=== PATIENT | male | born 1940 | race Caucasian/White ===

== ENCOUNTER 2025-06-21 02:19 | Observation (INO) | payer MEDICARE, OTHER, SELFPAY ==
[2025-06-20 19:15] VITALS: BP 156/89
[2025-06-20 19:25] VITALS: BP 159/117
[2025-06-20 19:38] LABS: Hematocrit 44.0 % (39.0-52.0); Hemoglobin 14.7 g/dL (13.0-18.0); Mean Corp Hgb Conc. 33.4 g/dL (33.0-37.0); Mean Corpuscular Volume 92.8 fL (80.0-94.0); Nucleated Red Blood Cells % 0 % (-); Platelet Count 181 10^3/uL (130-400); Red Cell Dist. Width 14.1 % (11.5-14.5)
[2025-06-20 20:00] LABS: AST (SGOT) 27 U/L (17-59); Albumin 4.1 g/dl (3.5-5.0); Blood Urea Nitrogen 21 mg/dl (9-20); Carbon Dioxide 22 mmol/L (22-30); Chloride 107 mmol/L (98-107); Glucose 117 mg/dl (70-99); Total Protein 7.1 g/dl (6.3-8.2); eGFR 59.63
[2025-06-20 20:10] LABS: ALT (SGPT) 23 U/L (0-50); Alkaline Phosphatase 58 U/L (38-126); Calcium 9.2 mg/dl (8.4-10.2); Potassium 4.7 mmol/L (3.5-5.1); Sodium 137 mmol/L (135-145)
[2025-06-20 20:13] LABS: Troponin I < 0.012 ng/ml
[2025-06-20 20:57] VITALS: BP 153/96
[2025-06-20 21:00] VITALS: BP 155/91
[2025-06-20 21:09] VITALS: BMI 32.5
--- NOTE | 2025-06-20 21:47 | ED.GENMED ---
History of Present Illness
General
Chief Complaint: Dizziness
Source: patient
Exam Limitations: none
Time Seen by Provider: 06/20/25 21:16
Nursing documentation reviewed up to this point in time: agreed with
History of Present Illness
History of Present Illness:
84-year-old male from [facility] 5:45 PM while walking to dinner noticed he was walking to the side, grabbed onto a rail, he has had similar episodes in the past told he had a TIA, he takes Eliquis for his A-fib his pacemaker he has no headache
no nausea no vomit no slurred speech no arm or leg weakness no visual complaints when I evaluated him he was reading watching TV in no acute distress
If applicable-neuro sx onset
Onset of symptoms known: Yes
Date of onset of symptoms: 06/20/25
Time of onset of symptoms: 17:45
Time pt last seen normal is known: Yes
Date last time pt seen normal: 06/20/25
Past History
Past History
ED Past Medical History: Arrthythmia, CAD, HTN, Hypercholesterolemia and Other (BPH)
ED Past Surgical History: Appendectomy, Cardiac and Orthopedic
Social History
Tobacco: Non-smoker
Alcohol: None
Drug: None
Living: with family
Employment: Retired
Review of Systems
Review of Systems
All Other Systems: Not applicable
Constitutional: Reports no symptoms
EENT: Reports no symptoms
Respiratory: Reports no symptoms
Cardiac: Reports no symptoms
ABD/GI: Reports no symptoms
: Reports no symptoms
Musculoskeletal: Reports no symptoms
Skin: Reports no symptoms
Neurological: Denies dizzy, headache, weakness or numbness
Psychiatric: Reports no symptoms
Phy Exam
Physical Exam
Physical Exam:
Physical Exam
General: no apparent distress, not acutely ill
Neck: No tongue bite midline trachea
Heart: s1/s2 regular rate and rhythm, no murmur. equal radial pulses.
Lungs: no acute respiratory distress. clear bilaterally
Abdomen: Nontender
Neuro: alert and oriented. no focal neurological deficits normal [id number] muscle strength 5 out of 5 upper and lower
Skin: no rash
Psychiatric: well kept. interactive and cooperative
Extremities: no edema.
Course
Orders/Labs/Results
Orders:
Orders
06/20/25 19:18
Electrocardiogram (*1) Urgent
Reason for Study: Syncope
EKG- Treatment ONCE
06/20/25 19:24
EKG [Electrocardiogram (*1)] Urgent
Reason for Study: Abdominal Pain
06/20/25 19:31
Complete Blood Count/With Diff Urgent
Comprehensive Metabolic Panel Urgent
Troponin I Urgent
06/20/25 21:02
Cardiac Monitoring- Treatment ONCE
06/20/25 21:43
CT Head W/o Iv Contrast Urgent
Comment:
Reason For Exam: ataixa
Abnormal Lab Results
06/20/25
19:31
MPV 11.1 H fL
(7.4-10.4)
Absolute Monos (auto) 0.8 H 10^3/uL
(0.1-0.6)
Lymphocytes % 19.1 L %
(20.5-51.1)
BUN 21 H mg/dl
(9-20)
Glucose 117 H mg/dl
(70-99)
06/20/25 19:31
06/20/25 19:31
Vital Signs
Initial and Last Documented VS:
Initial Vital Signs
Temp Pulse Resp BP Pulse Ox
97.9 F 80 18 156/89 92
06/20/25 19:15 06/20/25 19:15 06/20/25 19:15 06/20/25 19:15 06/20/25 19:15
Last Documented Vital Signs
Temp Pulse Resp BP Pulse Ox
97.9 F 80 18 155/91 97
06/20/25 19:15 06/20/25 21:15 06/20/25 21:17 06/20/25 21:00 06/20/25 21:50
MDM/Problems Addressed
Differential Diagnosis Includes:
Vertigo, ICH, TIA, electrolyte abnormality anemia
MDM/Problems Addressed:
Ataxia
Chronic conditions affecting care: Arrhythmia and Neurological disorder
Acute Exacerbation and/or Progression of Chronic Illness: Arrhythmia and Neurological disorder
*Radiology
Radiology exam reviewed: radiology read reviewed
*Pulse Oximetry
SaO2: 97
Oxygen Mode of Delivery: Room air
Patient hypoxic: no
*EKG
Interpreted by ED Provider?: Yes
Interpretation: normal
Comparison EKG: no comparison EKG present
Heart Rate: 78
Rate: normal
Rhythm: ventricular paced
Ischemia: no ischemia
*Ground Transportation Operator Interpretation
Rate: normal
Interpretation: normal
Heart Rate: 78
Rhythm: ventricular paced
*Critical Care Note
Total Time (30-74mins, 75-104mins- exclusive of procedures): Not Applicable
Data Reviewed
Source: patient
Update Note
Update Note:
11:[address] report noted. 2 prior CVAs, reviewed with patient recommend ambulating so he is doing, he states he feels uncomfortable going home, concerned that he could have had another stroke not unreasonable again he is anticoagulated not a lytic
candidate
ED Attending Note
-
Portions of this chart may have been created with voice recognition software.� Occasional wrong word or��sound alike� substitutions may have occurred due to the inherent limitations of voice recognition software.
Discharge Plan
Departure
Patient Disposition: Admit
Date of Disposition: 06/20/25
Time of Disposition: 23:31
Admit to: Telemetry
Presentation/result/management discussed w/ accepting MD/DO: Hospitalist
Patient with high blood pressure during this ER visit?: Yes
Condition: Good
Discharge Problem:
Brain TIA
Prescriptions:
No Action
niacin [Niaspan Extended-Release] 500 MG tablet extended release 24 hr
500 mg PO HS
aspirin 81 MG tablet,delayed release (DR/EC)
81 mg PO HS
simvastatin 40 MG tablet
40 mg PO HS
ramipril 2.5 MG capsule
2.5 mg PO HS
docosahexaenoic acid-epa 1 CAP capsule
400 mg PO BID
vitamin G34-cguhrdlhl factor [Martinic] 1 EACH capsule
1 cap PO DAILY
alfuzosin 10 MG tablet extended release 24 hr
10 mg PO DAILY
glucosamine nunez 2KCl-chondroit [Glucosamine Sulf-Chondroitin] 1 EACH capsule
500 mg PO BID
metronidazole 500 MG tablet
500 mg PO TID Qty: 30 0RF
levofloxacin 500 MG tablet
500 mg PO DAILY 10 Days 0RF
Referrals:
Ruma Buck DO [Family Provider, Internal Medicine]
Interventions
Interventions:
*Risk Screen - Suicide Last Done: 06/20/25 19:18
*General Assessment Last Done: 06/20/25 21:09
*Neglect/Abuse Screening Last Done: 06/20/25 19:18
*ED- Fall Risk Assessment Last Done: 06/20/25 21:09
*ED COVID-19 Vaccine History Last Done: 06/20/25 19:17
*ED Influenza Vaccine History Last Done: 06/20/25 19:17
ED- Neurological Assessment Last Done: 06/20/25 21:09
ED- Cardiac Assessment Last Done: 06/20/25 21:09
ED Swallowing Screen Last Done: 06/20/25 21:09
Discharge Date and Time
Print Language: LIBYAN
[2025-06-20 22:41] VITALS: BP 156/90
[2025-06-20 23:00] VITALS: BP 149/85
[2025-06-21] VITALS (16 sets, daily range): BP systolic 113–175; BP diastolic 72–105; PULSE 80–117; BMI 32.5; BMI 32.6
--- NOTE | 2025-06-21 01:13 | HPS.HSE ---
Family Physician
-
Family Physician: Ruma Buck
Chief Complaint
-
Dizziness
History of Present Illness
This is a 84-year-old who has a past medical history significant for atrial fibrillation on anticoagulation status post pacemaker placement, CAD, hypertension, hyperlipidemia, BPH presenting to the emergency department with episode of dizziness
requiring grabbing onto a rail.
Patient had a prior episode of dizziness that resulted in the finding of a TIA. He reported that he felt dizzy and could not walk so he grabbed onto the rail and now symptoms resolved. He had no facial asymmetry, slurred speech, focal weaknesses
in the upper or lower extremities, and no double vision blurry vision or other visual changes, denies any headache. Denies any nausea. Denies any vomiting. Denies any palpitations.
He told me that he is Ambulatory Difficulties in the past and Has Osteoarthritis of the Knee and He [place] That Is Right Knee Could Have Buckled but He Was Not Sure. He denied any palpitations, diaphoresis chest pain lightheadedness. He denies
having any vertigo and nausea or vomiting. He reported that he was seen at [facility] twice for symptoms in the past that were similar and was diagnosed with TIA with last episode in January. He did have an MRI that was negative at that time. There
was no changes in his medications.
In the emergency department patient was afebrile, blood pressure of 153/102 with a pulse rate of 80 and he was satting 98% on room air. ECG shows a AV dual paced rhythm at a rate of [address]-T wave changes. CT of the head showed no acute
interval changes. Troponin was negative. CBC was all within normal limits. Electrolytes BUN/creatinine were all within the normal range.
Medical History
Past Medical History
Past Medical History: Reports Arrhythmia (Atrial fibrillation), CAD, HTN, Hypercholesterolemia and Other (BPH)
Past Surgical History: Reports Appendectomy, Cardiac and Orthopedic
Social History
Tobacco: Non-smoker
Alcohol: None
Living: With Family
Family History
Family History: Not pertinent
Allergies / Home Medications
Allergies reflects when Allergies were last updated in [employer].
Home Medications with original date entered in [employer]
Allergy/Medication List:
Allergies
Allergy/AdvReac Type Severity Reaction Status Date / Time
No Known Allergies Allergy Verified 06/20/25 19:17
Home Medications
alfuzosin 10 mg tablet,extended release 24 hr 10 mg PO DAILY 12/21/12
[place] 3 Fish Oil 1,000 mg PO TID 06/21/25
apixaban 5 mg tablet (Eliquis) 5 mg PO BID 06/21/25
ascorbic acid (vitamin C) 100 mg chewable tablet 100 mg PO DAILY 06/21/25
coenzyme Q10 100 mg capsule 100 mg PO DAILY 06/21/25
omeprazole 20 mg capsule,delayed release 20 mg PO DAILY 06/21/25
rosuvastatin 40 mg tablet 40 mg PO DAILY 06/21/25
valsartan 80 mg tablet 80 mg PO DAILY 06/21/25
Review of Systems
-
Constitutional: Reports No Symptoms
EENT: Reports No Symptoms
Respiratory: Reports No Symptoms
Cardiac: Reports No Symptoms
Abdomen/GI: Reports No Symptoms
: Reports No Symptoms
Musculoskeletal: Reports No Symptoms
Skin: Reports No Symptoms
Neurological: Reports No Symptoms
Endocrine: Reports No Symptoms
Hematologic/Lymphatic: Reports No Symptoms
Psych: Reports No Symptoms
Physical Exam
Vital Signs
Vital Signs
Temp Pulse Resp BP Pulse Ox
97.9 F 82 19 153/102 98
06/20/25 19:15 06/21/25 01:00 06/21/25 01:00 06/21/25 01:00 06/21/25 01:00
Physical Exam
General: Well Developed, Well Nourished and No Apparent Distress
HEENT: NormoCephalic, Moist mucous membranes and Atraumatic
Respiratory: Clear
Cardiac: S1/S2 and Regular Rhythm; No Murmur or Rub
GI: Soft, Non Tender, Non Distended and Normal Bowel Sounds; No Organomegaly
Rectal: Deferred by Provider
Musculoskeletal: No Clubbing, No Cyanosis and No Edema
Skin: No Rash
Neuro: Nonfocal/grossly intact
Laboratory Results
-
06/20/25 19:
06/20/25:
Laboratory Results
Total Bilirubin 1.0 mg/dl (0.2-1.3) 06/20/25
AST 27 U/L (17-59) 06/20/25
ALT 23 U/L (0-50) 06/20/25
Alkaline Phosphatase 58 U/L (38-126) 06/20/25:
Troponin I < 0.012 ng/ml 06/20/25:
Data Reviewed
-
CT Scan: Report Reviewed by me
Medical Tests (Nuc Med, Echo, EKG etc): Image Personally Visualized and interpreted
Lab Data: Labs Reviewed by me
Impression/Plan
-
IMPRESSION:
84-year-old with a history of atrial fibrillation on anticoagulation, CAD, hypertension, hyperlipidemia, prior TIA presents to Emergency Department with episode of dizziness which appears to be now resolved. She has no other focal neurological
deficit. NIHSS equals 0 currently. Patient is compliant with Eliquis and lives at [facility]. I suspect episode of ambulatory dysfunction versus TIA.
PLAN:
Dizziness, possible TIA -denies any vertigo. Denies feeling lightheaded. Denies palpitations. Possibly ambulatory dysfunction. He was able to ambulate without symptoms in the ED however.
- Admit to telemetry observation
- low chol diet
- cardiovascular panel
- Neurochecks Q6
- Request records from [facility] from January to March including imaging such as MRI
- Possible check MRI in a.m pending records of pacemaker from [facility], will hold off on ordering at this time
- Carotid ultrasound bilateral
- Continue anticoagulation for now
- Orthostatic vital sign
- PT consultation
- Neurology consultation
Hypertension
- Continue antihypertensives with valsartan 80 mg daily and continue metoprolol
- Continue statin Crestor 40 mg daily
Atrial fibrillation on anticoagulation
- Continue Eliquis
- Continue metoprolol 25 mg extended release daily
BPH
� Continue prazosin and finasteride
DVT prophylaxis�on Eliquis
CODE STATUS�DNR
[2025-06-21] MEDS: ELIQUIS 5 MG PO ×3 (01:38→19:59)
[2025-06-21] MEDS: TYLENOL 650 MG PO (03:57)
[2025-06-21] MEDS: FLOMAX 0.4 MG PO (08:01)
[2025-06-21] MEDS: DIOVAN 80 MG PO (08:01)
[2025-06-21] MEDS: PROTONIX 40 MG PO (08:01)
[2025-06-21] MEDS: PROSCAR 5 MG PO (08:01)
[2025-06-21] MEDS: TOPROL XL 25 MG PO (08:01)
[2025-06-21] MEDS: VITAMIN C 125 MG PO (08:53)
[2025-06-21] MEDS: CRESTOR 40 MG PO (08:54)
--- NOTE | 2025-06-21 10:05 | CON.NEURO4 ---
Addendum entered and electronically signed by Aris John MD 06/21/25 18:38:
Studies reviewed.
I have personally examined the patient. I reviewed and agree with the FIBER PICKER's Note.
My addenda:
Awake, alert, interactive. No acute distress.
Speech intact.
Follows 2-step requests w/o difficulty. No tremor.
Extra-ocular movements grossly intact.
Facial movements full and symmetric. Hearing intact to normal conversational volume.
Normal UE movements bilaterally.
Neck: full ROM.
Chest: no dyspnea
Heart: no JVD
Ext: (-) Clubbing, (-) Cyanosis, (-) Edema
IMPRESSIONS/RECOMMENDATIONS:
Abrupt onset of difficulty with gait and general malaise. Patient has prior history of 2 episodes which were suggestive of acute ischemic stroke in 2023 and January 2025
Orthostatic blood pressure evaluations do indicate orthostasis is present
Patient should be maintained on apixaban
Patient should be maintained on rosuvastatin
Provide abdominal binder
Encourage fluids
Patient should sleep at a 30 degree angle to prevent supine hypertension
If unable to obtain MRI of brain in a timely fashion, may be performed as outpatient
D/W patient
All questions answered.
Will continue to follow as needed.
Original Note:
Documented by User: Mae Forrest NP 06/21/25 13:26
Consultation - Neurology 4
-
CONSULTING PHYSICIAN: Aris John MD
REFERRING PHYSICIAN: Hospitalists/CHIDI Comer
DICTATED BY: CHIDI Perez
DATE/TIME OF REQUEST: 06/21/25
DATE/TIME OF CONSULTATION: 06/21/25
Reason for Consultation: Unsteady Gait
History of Present Illness:
This is an 84-year-old left-handed male who has presented to the hospital on 06/20/25 with report of difficulty walking. Patient reports that in Fall 2023 he had an episode of 'not feeling right' and being unbale to speak. He was evaluated at
[facility] at that time and wasn't given a clear diagnosis. Then in January 2025 he had another episode of suddenly not being able to come up with words for 2-3 minutes. His friends report that his speech was garbled and nonsensical. He was
evaluated at [facility] again following that event and had an MRI brain which he reports demonstrated 2 areas of 'TIA.'
Yesterday (06/20/25), he was in his usual state when he was walking to dinner, when suddenly he was veering to the left side and unable to walk straight. CT head was obtained on arrival and is suggestive of chronic left cerebellar and ventral
medulla ischemic infarcts. CTA head/neck is negative for any any LVO or significant stenosis. Today (06/21/25), he reports still feeling unsteady on his feet. He reports having a headache this morning that has now resolved. He denies any dizziness,
vision changes, speech/swallowing difficulty, numbness, and focal weakness. He has not missed any doses of his apixaban.
Past Medical History: Afib (apixaban), HTN, HLD, CAD, BPH
Surgical History: AICD, appendectomy, orthopedic
Family History: Reviewed and noncontributory.
Social History: Denies tobacco, alcohol, and illicit drug use.
Allergies: No known allergies.
Home Medications: See below.
Review of Symptoms:
Patient denies any fever, headache, chest pain, shortness of breath, GI or symptoms.
�Per the HPI.�All systems are reviewed negative except above.
Physical Exam:
The patient is afebrile, abdomen is nondistended, breathing is unlabored, skin is warm and dry, no edema.
NIH Stroke Scale:
I performed the NIH stroke scale on the patient on 06/21/25 at 1015. The patient scored 0 points on the NIH stroke scale assessment, which were assigned as follows: See below.
Neurologic Examination:
The patient is awake, alert and oriented x 3. He is able to follow commands and answer questions appropriately. There is no aphasia or dysarthria. On cranial nerve assessment, pupils are 3 mm bilateral, round and reactive to light and
accommodation. Visual blair are full. Extraocular movements are intact. Facial sensations are intact and bilaterally symmetrical, there is no facial asymmetry. Hearing is intact bilaterally to normal conversation volume. Tongue palate and uvula are
midline. Sternocleidomastoid strengths are full bilaterally. Motor strengths are 5/5 bilateral upper and lower extremities on medical research [place] scale. There is no drift or involuntary movement noted. Deep tendon reflexes are 2+ bilateral
upper and lower extremities and Babinski is absent bilaterally. There was no extinction noted on double simultaneous stimulation. Coordination is intact by finger to nose bilaterally.
Lab Results: See below.
Neuro Imaging:
1. CT Head 06/20/25: No CT evidence for acute intracranial hemorrhage or transcortical infarct. 1.4 cm chronic infarct in the posterior left cerebellar hemisphere. Probable 4 mm chronic infarct in the ventral medulla. Mild to moderate bilateral
frontal and parietal lobe volume loss.
2. CTA head/neck 06/21/25: No acute intracranial abnormality. No significant change compared to the prior CT from 06/20/2025. No large vessel occlusions or dissections appreciated.
Differentials for the patient's presentation include:
1. Abrupt onset gait dysfunction; uncertain etiology, possibly due to positive orthostatic vital signs, cannot entirely exclude an acute ischemic stroke producing symptoms.
2. History of a left cerebellar and possibly medullary ischemic stroke.
Patient has the following risk factors for their symptoms: Hx stroke, HTN, HLD, age, +orthostatic vital signs
IV Tenecteplase/IAT candidacy: Not a candidate due to low NIHSS, no LVO.
Recommendations:
-Continue home apixaban.
-MRI brain noncontrast pending.
-Check orthostatic vital signs BID.
-Abdominal binder daily when OOB for orthostasis. Slow position changes, increase water intake.
-LDL goal <70. LDL is pending. Continue home rosuvastatin 40mg daily.
-Goal normoglycemia, hbA1c is pending.
-NIHSS and neurological checks per unit guidelines.
-Provide patient with a stroke education packet.
-PT/OT evaluations.
Discussed patient care with: Dr. John, the patient
Vital Signs and Labs
-
Vital Signs and Labs:
Vital Signs
Temp Pulse Resp BP Pulse Ox
97.6 F 87 22 154/88 96
06/21/25 07:59 06/21/25 08:01 06/21/25 07:59 06/21/25 08:01 06/21/25 07:59
Lab Results
06/20/25 19:31
06/20/25 19:31
Sodium 137 mmol/L (135-145) 06/20/25 19:31
Potassium 4.7 mmol/L (3.5-5.1) 06/20/25 19:31
BUN 21 mg/dl (9-20) H 06/20/25 19:31
Glucose 117 mg/dl (70-99) H 06/20/25 19:31
Calcium 9.2 mg/dl (8.4-10.2) 06/20/25 19:31
Cholesterol Cancelled 06/21/25 06:10
Medications
-
Active Medications
Generic Name Dose Route Start Last Admin
Trade Name Freq PRN Reason Stop Dose Admin
Acetaminophen 650 mg 06/21/25 03:48 06/21/25 03:57
Acetaminophen 325 Mg Tablet PO 07/19/25 03:47 650 mg
Q4HPRN PRN Administration
mild pain/YOUNG/temp>100.5
Apixaban 5 mg 06/21/25 10:00
Apixaban (Eliquis) 5 Mg Tablet PO 07/19/25 09:59
BID YADIEL
Ascorbic Acid 125 mg 06/21/25 08:00 06/21/25 08:53
Ascorbic Acid 250 Mg Tablet PO 07/19/25 07:59 125 mg
DAILY YADIEL Administration
Finasteride 5 mg 06/21/25 08:00 06/21/25 08:01
Finasteride 5 Mg Tablet PO 07/19/25 07:59 5 mg
DAILY YADIEL Administration
Metoprolol Succinate 25 mg 06/21/25 08:00 06/21/25 08:01
Metoprolol 25 Mg Extended Release Tablet PO 07/19/25 07:59 25 mg
DAILY YADIEL Administration
Pantoprazole Sodium 40 mg 06/21/25 08:00 06/21/25 08:01
Pantoprazole 40 Mg Delayed Release Tablet PO 07/19/25 07:59 40 mg
DAILY YADIEL Administration
Rosuvastatin Calcium 40 mg 06/21/25 08:00 06/21/25 08:54
Rosuvastatin (Crestor) 20 Mg Tablet PO 07/19/25 07:59 40 mg
DAILY YADIEL Administration
Tamsulosin HCl 0.4 mg 06/21/25 08:00 06/21/25 08:01
Tamsulosin 0.4 Mg Capsule PO 07/19/25 07:59 0.4 mg
DAILY YADIEL Administration
Valsartan 80 mg 06/21/25 08:00 06/21/25 08:01
Valsartan 80 Mg Tablet PO 07/19/25 07:59 80 mg
DAILY YADIEL Administration
Home Medications
�Medication �Instructions �Recorded
alfuzosin 10 mg tablet,extended 10 mg PO QPM Urinary Issue 12/21/12
release 24 hr
apixaban 5 mg tablet (Eliquis) 5 mg PO BID Prevent Blood Clot/AFib 06/21/25
ascorbic acid (vitamin C) 100 mg 100 mg PO DAILY Supplement 06/21/25
chewable tablet
coenzyme Q10 100 mg capsule 100 mg PO DAILY Supplement 06/21/25
finasteride 5 mg tablet 5 mg PO QPM Urinary Issue 06/21/25
metoprolol succinate 25 mg 25 mg PO DAILY Heart 06/21/25
tablet,extended release 24 hr Disease/BP/AFib
(Toprol XL)
omega 1-vbf-abx-fish oil 1,000 mg 1 cap PO BID Supplement 06/21/25
(120 mg-180 mg) capsule (Fish Oil)
omeprazole 20 mg capsule,delayed 20 mg PO DAILY Gastrointestinal 06/21/25
release Issue
rosuvastatin 40 mg tablet 40 mg PO DAILY High Cholesterol 06/21/25
valsartan 80 mg tablet 80 mg PO DAILY Blood Pressure 06/21/25
NIH Stroke Score
Subsequent NIH Scale
Date of Subsequent NIH Scale: 06/21/25
Time of Subsequent NIH Scale: 10:15
NIH Stroke Score
Level of Consciousness: 0 - Alert
LOC Questions: 0-Answers both correctly
LOC Commands: 0-Performs both correctly
Best Horizontal Gaze: 0-Normal
Visual [place]: 0=Normal, no visual loss
Facial Palsy: 0=Normal, symmetrical
Motor - Right Arm: 0=No drift 10 seconds
Motor - Left Arm: 0=No drift 10 seconds
Motor - Right Le-No drift 5 seconds
Motor - Left Le-No drift 5 seconds
Limb Ataxia: 0-Absent
Sensation: 0-Normal
Best Language: 0-No aphasia
Dysarthria: 0-Normal
Extinction and Inattention: 0-No abnormality
NIH Total Score:: 0
Modified [place] (mRS) Score
Modified [place] Scale (mRS): Slight disability. Able to look after own affairs.
Score: 2
Alteplase Contraindication
Inclusion and Exclusion criteria reviewed: Yes
IAT Contraindications: NIHSS < 6 and Imaging doesn't show large vessel occlusion as cause of stroke

Documented by User: Aris John MD 06/21/25 18:35
NIH Stroke Score
NIH Stroke Score
NIH Total Score:: 0
Modified [place] (mRS) Score
Score: 2
[2025-06-21 10:35] LABS: HDL Cholesterol 45 mg/dl; Very Low Density Lipoprotein 30 mg/dl (0-30)
--- NOTE | 2025-06-21 10:44 | CM ---
Chart reviewed and KELLEY reviewed and signed at 10:35 am
Lives alone in [facility]
Independent with ADLs and ambulation. Drives
no DME
PCP Dr. Noe Buck
RX plan yes
Pharmacy [facility]
no hx of VN
[facility] of [facility]
DCP is to go home and stepdtr Dania can drive him home
Will continue to follow up for any dcp needs
[2025-06-21 11:04] LABS: Glycohemoglobin (HgbA1c) 6.3 % (4.0-5.9)
[2025-06-21 11:12] LABS: Ferritin 130.0 ng/ml (17.9-464.0)
[2025-06-21 12:51] LABS: Folate 9.1 ng/ml (2.76-20)
--- NOTE | 2025-06-21 14:57 | W.PN.UPDATE ---
Update Note
Progress Note Update
SHANNAN stockings, abdominal binder for orthostatic positive
MRI once clearance is obtained due to pacemaker
Obtain lipid panel
[2025-06-21 15:18] LABS: Vitamin B12 391 pg/ml (239-931)
[2025-06-21] MEDS: LR 1000 IV (15:34)
--- NOTE | 2025-06-21 19:00 | PTCARENOTE ---
Received patient from ED via wheelchair. Patient ambulated from wheelchair to bed x1 assist with RW. AAOx3, no current complaints of pain. Oriented patient to room and placed call truong within reach.
[2025-06-21 20:34] LABS: LDL Cholesterol, Calculated 64 mg/dl
[2025-06-22] VITALS (7 sets, daily range): BP systolic 100–172; BP diastolic 58–103; PULSE 81–85
[2025-06-22] MEDS: CRESTOR 40 MG PO (08:16)
[2025-06-22] MEDS: DIOVAN 80 MG PO ×2 (08:16→23:11)
[2025-06-22] MEDS: PROTONIX 40 MG PO (08:16)
[2025-06-22] MEDS: TOPROL XL 25 MG PO (08:16)
[2025-06-22] MEDS: FLOMAX 0.4 MG PO (08:16)
[2025-06-22] MEDS: ELIQUIS 5 MG PO ×2 (08:16→20:34)
[2025-06-22] MEDS: PROSCAR 5 MG PO (08:16)
[2025-06-22] MEDS: VITAMIN C 125 MG PO (08:26)
[2025-06-22 08:48] LABS: Hematocrit 44.7 % (39.0-52.0); Hemoglobin 14.9 g/dL (13.0-18.0); Mean Corp Hgb Conc. 33.3 g/dL (33.0-37.0); Mean Corpuscular Volume 95.9 fL (80.0-94.0); Platelet Count 192 10^3/uL (130-400); Red Cell Dist. Width 14.0 % (11.5-14.5)
[2025-06-22 09:31] LABS: ALT (SGPT) 22 U/L (0-50); AST (SGOT) 26 U/L (17-59); Albumin 4.1 g/dl (3.5-5.0); Alkaline Phosphatase 55 U/L (38-126); Blood Urea Nitrogen 24 mg/dl (9-20); Calcium 9.8 mg/dl (8.4-10.2); Carbon Dioxide 24 mmol/L (22-30); Chloride 107 mmol/L (98-107); Estimated Creatinine Clearance 49 ml/min; Glucose 114 mg/dl (70-99); Potassium 4.6 mmol/L (3.5-5.1); Sodium 137 mmol/L (135-145); Total Protein 7.0 g/dl (6.3-8.2); eGFR 54.17
--- NOTE | 2025-06-22 12:55 | W.PN.HOSP.TC ---
Today's Communication/Plan
-
hypertensive control
BP titration
Assessment / Plan
Assessment / Plan
Physical Exam
General: Well Developed, Well Nourished and No Apparent Distress
HEENT: NormoCephalic, Moist mucous membranes and Atraumatic
Respiratory: Clear
Cardiac: S1/S2 and Regular Rhythm; No Murmur or Rub
GI: Soft, Non Tender, Non Distended and Normal Bowel Sounds; No Organomegaly
Rectal: Deferred by Provider
Musculoskeletal: No Clubbing, No Cyanosis and No Edema
Skin: No Rash
Neuro: Nonfocal/grossly intact
Dizziness, possible TIA -
-Orthostatic positive - add SHANNAN stockigns, abd binder fluid
-Repeat Orthostatics
-Cont Tele
-MRI Brain, pending PPM clearance
-LDL 64, a1c 6.3
-Neurology recs
-Low Fat Diet
-PT/OT
#Orthostatic Hypotension
-Monitor
Hypertension
- Change valsartan to 80 mg BID
-Add nifedipine 30mg xl
-continue metoprolol
- Continue statin Crestor 40 mg daily
Atrial fibrillation on anticoagulation
- Continue Eliquis
- Continue metoprolol 25 mg extended release daily
BPH
� Continue prazosin and finasteride
DVT prophylaxis�on Eliquis
CODE STATUS�DNR
Anticipated Discharge: 24 - 48 hours
Subjective/Interval History
-
Date of Service: June 22, 2025
No acute events overnight
Objective Data
-
Labs:
Laboratory Results
06/22/25
08:04
WBC 6.6
Hgb 14.9
Hct 44.7
Plt Count 192
Sodium 137
Potassium 4.6
Chloride 107
Carbon Dioxide 24
BUN 24 H
Creatinine 1.3
Glucose 114 H
Calcium 9.8
Total Bilirubin 1.1
AST 26
ALT 22
Alkaline Phosphatase 55
Vital Signs:
Vital Signs
Temp Pulse Resp BP Pulse Ox
98.4 F 82 16 172/93 93
06/22/25 11:45 06/22/25 11:45 06/22/25 11:45 06/22/25 11:45 06/22/25 11:45
I&O
06/21/25 06/22/25 06/23/25
06:59 06:59 06:59
Output Total 695 / 695
Balance -695 / -695
Review of Systems
-
History Source: Patient
All other systems: Not reviewed unless documented
Data Reviewed
-
Diagnostic Radiology: Report Reviewed by me
CT Scan: Report Reviewed by me
Labs: Labs Reviewed by me
[2025-06-22] MEDS: PROCARDIA XL (EXTENDED RELEASE) 30 MG PO (13:19)
[2025-06-23] VITALS (8 sets, daily range): BP systolic 114–155; BP diastolic 67–91; PULSE 80–85
[2025-06-23 08:17] LABS: Hematocrit 42.5 % (39.0-52.0); Hemoglobin 13.6 g/dL (13.0-18.0); Mean Corp Hgb Conc. 32.0 g/dL (33.0-37.0); Mean Corpuscular Volume 96.8 fL (80.0-94.0); Platelet Count 185 10^3/uL (130-400); Red Cell Dist. Width 14.1 % (11.5-14.5)
[2025-06-23] MEDS: TOPROL XL 25 MG PO (08:42)
[2025-06-23] MEDS: ELIQUIS 5 MG PO ×2 (08:42→20:24)
[2025-06-23] MEDS: PROTONIX 40 MG PO (08:43)
[2025-06-23] MEDS: DIOVAN 80 MG PO ×2 (08:43→20:26)
[2025-06-23] MEDS: PROCARDIA XL (EXTENDED RELEASE) 30 MG PO (08:43)
[2025-06-23] MEDS: FLOMAX 0.4 MG PO (08:43)
[2025-06-23] MEDS: VITAMIN C 125 MG PO (08:43)
[2025-06-23] MEDS: PROSCAR 5 MG PO (08:43)
[2025-06-23] MEDS: CRESTOR 40 MG PO (08:43)
[2025-06-23 09:22] LABS: AST (SGOT) 24 U/L (17-59); Albumin 3.6 g/dl (3.5-5.0); Alkaline Phosphatase 50 U/L (38-126); Blood Urea Nitrogen 24 mg/dl (9-20); Calcium 9.3 mg/dl (8.4-10.2); Carbon Dioxide 22 mmol/L (22-30); Chloride 107 mmol/L (98-107); Estimated Creatinine Clearance 53 ml/min; Glucose 87 mg/dl (70-99); Sodium 136 mmol/L (135-145); Total Protein 6.3 g/dl (6.3-8.2); eGFR 59.63
[2025-06-23 09:31] LABS: ALT (SGPT) 19 U/L (0-50); Potassium 4.2 mmol/L (3.5-5.1)
--- NOTE | 2025-06-23 13:24 | W.PN.HOSP.TC ---
Today's Communication/Plan
-
Cont antihypertensive regimen
monitor orthostatics with TEDs, Abd binder
Pending MRI
Assessment / Plan
Assessment / Plan
Physical Exam
General: Well Developed, Well Nourished and No Apparent Distress
HEENT: NormoCephalic, Moist mucous membranes and Atraumatic
Respiratory: Clear
Cardiac: S1/S2 and Regular Rhythm; No Murmur or Rub
GI: Soft, Non Tender, Non Distended and Normal Bowel Sounds; No Organomegaly
Rectal: Deferred by Provider
Musculoskeletal: No Clubbing, No Cyanosis and No Edema
Skin: No Rash
Neuro: Nonfocal/grossly intact
Dizziness, possible TIA -
-Orthostatic positive - add SHANNAN stockigns, abd binder fluid
-Monitor Orthostatics
-Cont Tele
-MRI Brain, pending PPM clearance
-LDL 64, a1c 6.3
-Neurology recs
-Low Fat Diet
-PT/OT
#Orthostatic Hypotension
�SHANNAN stockings
� Abdominal binder
� Monitor with antihypertensives
Hypertension
- Change valsartan to 80 mg BID
-Add nifedipine 30mg xl
-continue metoprolol
� Monitor orthostatics
- Continue statin Crestor 40 mg daily
Atrial fibrillation on anticoagulation
- Continue Eliquis
- Continue metoprolol 25 mg extended release daily
BPH
� Continue prazosin and finasteride
DVT prophylaxis�on Eliquis
CODE STATUS�DNR
Anticipated Discharge: Within 24 hours
Subjective/Interval History
-
Date of Service: June 23, 2025
No acute events overnight, orthostatic this morning
Objective Data
-
Labs:
Laboratory Results
06/23/25
05:36
WBC 7.1
Hgb 13.6
Hct 42.5
Plt Count 185
Sodium 136
Potassium 4.2
Chloride 107
Carbon Dioxide 22
BUN 24 H
Creatinine 1.2
Glucose 87
Calcium 9.3
Total Bilirubin 0.9
AST 24
ALT 19
Alkaline Phosphatase 50
Vital Signs:
Vital Signs
Temp Pulse Resp BP Pulse Ox
98.3 F 82 16 135/82 94
06/23/25 11:11 06/23/25 11:11 06/23/25 11:11 06/23/25 11:11 06/23/25 11:11
I&O
06/22/25 06/23/25 06/24/25
06:59 06:59 06:59
Intake Total 300 / 300 660 / 660
Output Total 695 / 695 605 / 605
Balance -695 / -695 -305 / -305 660 / 660
Review of Systems
-
History Source: Patient
All other systems: Not reviewed unless documented
Data Reviewed
-
Diagnostic Radiology: Report Reviewed by me
CT Scan: Report Reviewed by me
Labs: Labs Reviewed by me
[2025-06-24] VITALS (7 sets, daily range): BP systolic 116–169; BP diastolic 75–98; PULSE 81–88
[2025-06-24 07:47] LABS: Hematocrit 42.9 % (39.0-52.0); Hemoglobin 13.8 g/dL (13.0-18.0); Mean Corp Hgb Conc. 32.2 g/dL (33.0-37.0); Mean Corpuscular Volume 96.4 fL (80.0-94.0); Platelet Count 177 10^3/uL (130-400); Red Cell Dist. Width 13.7 % (11.5-14.5)
[2025-06-24 08:12] LABS: ALT (SGPT) 20 U/L (0-50); AST (SGOT) 21 U/L (17-59); Albumin 3.5 g/dl (3.5-5.0); Alkaline Phosphatase 53 U/L (38-126); Blood Urea Nitrogen 23 mg/dl (9-20); Calcium 9.4 mg/dl (8.4-10.2); Carbon Dioxide 25 mmol/L (22-30); Chloride 108 mmol/L (98-107); Estimated Creatinine Clearance 49 ml/min; Glucose 98 mg/dl (70-99); Potassium 4.1 mmol/L (3.5-5.1); Sodium 137 mmol/L (135-145); Total Protein 6.4 g/dl (6.3-8.2); eGFR 54.17
[2025-06-24] MEDS: VITAMIN C 125 MG PO (09:34)
[2025-06-24] MEDS: DIOVAN 80 MG PO (09:35)
[2025-06-24] MEDS: PROCARDIA XL (EXTENDED RELEASE) 30 MG PO (09:36)
[2025-06-24] MEDS: ELIQUIS 5 MG PO (09:36)
[2025-06-24] MEDS: FLOMAX 0.4 MG PO (09:38)
[2025-06-24] MEDS: CRESTOR 40 MG PO (09:38)
[2025-06-24] MEDS: PROTONIX 40 MG PO (09:38)
[2025-06-24] MEDS: PROSCAR 5 MG PO (09:38)
[2025-06-24] MEDS: TOPROL XL 25 MG PO (09:38)
--- NOTE | 2025-06-24 16:05 | W.DCSUMMARY ---
Discharge Summary
Discharge Data
Date of Admission: 06/21/25
Date of Discharge: 06/24/25
-
Pending Results: No
Hospital Course
Discharging Physician : Dr Dangelo French
Disposition : To [facility]
Primary care physician : Dr Ruma Buck
Principal Discharge diagnosis :
Dizziness episode
Orthostatic hypotension
Uncontrolled hypertension
Chronic Discharge diagnosis :
Atrial fibrillation on anticoagulation
Benign prostatic hyperplasia
Gastroesophageal reflux disease
History of transient ischemic attack
Hyperlipidemia
Physical examination:
HEENT: moist mucus membrane
Chest: Clear to auscultation
Heart: N s1/s2, no murmur
Abd: N BS, soft, nontender,
Neuro: No motor or sensory deficits
Ext: No edema
Hospital Course :
Patient is a 84-year-old male with illumination of his medical history came to ER for having episode of dizziness with associated balance issue. Patient has a history of previous episode of dizziness and was felt to be TIA in the past. Patient did
not have any other focal neurological symptoms. In ER patient had a CT head which did not show any acute interval changes. Neurology was involved in care who recommended patient to have MRI brain orthostatic vitals checked. Patient was noted to
having orthostatic vitals associated with supine hypertension. Patient blood pressure medication actually required to be increased for supine hypertension. Patient was instructed to use compression stockings. Patient was evaluated by physical
therapy and was appropriate for home level care. A follow-up MRI brain was done which ruled out any acute stroke. Patient is being discharged back to assisted living.
Important imaging findings :
None
Procedure findings :
None
Discharge Plan
-
Patient Disposition: Home with Home Care
Discharge Diagnosis/Procedures: Dizziness, orthostatic hypotension
Condition: Fair
Diet: Regular
Activity: As tolerated
Driving Restrictions: No driving
Bathing Restrictions: OK to Shower
Activity Restrictions/Additional Instructions:
Please wear compression stockings during day time
Referrals:
Ruma Buck DO [Family Provider, Internal Medicine] - in one week
Prescriptions:
New
nifedipine 30 mg Tablet Extended Release
30 mg PO DAILY Qty: 30 2RF
valsartan 80 mg tablet
80 mg PO BID Qty: 60 2RF
Continued
alfuzosin 10 MG tablet extended release 24 hr
10 mg PO QPM
omeprazole 20 mg Capsule,Delayed Release(Dr/Ec)
20 mg PO DAILY
ascorbic acid (vitamin C) 100 mg Tablet,Chewable
100 mg PO DAILY
coenzyme Q10 100 mg Capsule
100 mg PO DAILY
rosuvastatin 40 mg Tablet
40 mg PO DAILY
Eliquis 5 mg Tablet
5 mg PO BID
omega [id number] oil [Fish Oil] 1,000 (120-180) mg Capsule
1 cap PO BID
metoprolol succinate [Toprol XL] 25 mg Tablet Extended Release 24 Hr
25 mg PO DAILY
finasteride 5 mg Tablet
5 mg PO QPM
Discontinued
valsartan 80 mg Tablet
80 mg PO DAILY
Discharge Orders:
Discharge Patient (As Directed); Ordered 06/24/25
Ordered By: Dangelo French
Discharge Date and Time
Print Language: TAJIK
--- NOTE | 2025-06-24 17:40 | CM ---
Pt is discharged. Pt refusing home health. States he can get PT at [facility]. Wishes to speak to before he goes home tonight.
Plan: Home to [facility] no needs.
== END 2025-06-24 18:40 | disposition home or self-care (01) ==
LOC: 4 EAST ACU 02:19
PROVIDERS: Emergency Medicine; Internal Medicine; ADMITTING PHYSICIAN Internal Medicine; ATTENDING PHYSICIAN Hospitalist; CONSULT PHYSICIAN Psychiatry & Neurology Neurology; EMERGENCY PHYSICIAN Emergency Medicine; FAMILY PHYSICIAN Internal Medicine
DX: R42 Dizziness and giddiness (principal); I95.1 Orthostatic hypotension; I48.91 Unspecified atrial fibrillation; N40.0 Benign prostatic hyperplasia without lower urinary tract symptoms; E78.00 Pure hypercholesterolemia, unspecified; I10 Essential (primary) hypertension; M19.011 Primary osteoarthritis, right shoulder; I25.10 Atherosclerotic heart disease of native coronary artery without angina pectoris; M17.11 Unilateral primary osteoarthritis, right knee; R53.81 Other malaise; K21.9 Gastro-esophageal reflux disease without esophagitis; R26.2 Difficulty in walking, not elsewhere classified; R10.9 Unspecified abdominal pain; Z60.2 Problems related to living alone; Z66 Do not resuscitate; Z90.49 Acquired absence of other specified parts of digestive tract; Z79.01 Long term (current) use of anticoagulants; Z79.899 Other long term (current) drug therapy; Z86.73 Personal history of transient ischemic attack (TIA), and cerebral infarction without residual deficits; Z95.810 Presence of automatic (implantable) cardiac defibrillator; Z79.82 Long term (current) use of aspirin
CPT/HCPCS: 70450; 70496; 70498; 70551; 71046; 80053; 80061; 82607; 82728; 82746; 83036; 84443; 84484; 85025; 85027; 93005; 97110; 97116; 97535; 99285; G0378; Q9967